=== PATIENT | female | born 1965 | race African-American/Black ===

== ENCOUNTER 2016-09-24 09:01 | Emergency (ER) | payer MEDICAID ==
[~2016-09-24] VITALS: Ht 167.6 cm; Wt 97.3 kg
[2016-09-24 09:03] VITALS: BP 136/86
[2016-09-24] MEDS ORDERED: DIPHENHYDRAMINE 50 MG/ML, 1ML IM ONE (09:30)
[2016-09-24] MEDS ORDERED: DIPHENHYDRAMINE 50 MG/ML, 1ML ONE (09:40)
== END 2016-09-24 09:50 | disposition home or self-care (01) ==
LOC: ED 09:40
DX: R21 Rash and other nonspecific skin eruption (principal); K59.00 Constipation, unspecified
CPT/HCPCS: 96372; 99283; J1200; J7512

== ENCOUNTER 2017-02-12 08:46 | Emergency (ER) | payer MEDICAID ==
[~2017-02-12] VITALS: Ht 167.6 cm; Wt 100.0 kg
[2017-02-12] MEDS ORDERED: METOPROLOL SUCCINATE 50 MG TAB.ER.24H PO ONE (09:57)
[2017-02-12] MEDS ORDERED: ASPIRIN 81 MG TABLET CHEW PO ONE (10:00)
[2017-02-12] MEDS ORDERED: ASPIRIN 81 MG TABLET CHEW ONE (10:29)
[2017-02-12 11:18] LABS: HEMATOCRIT 41.4 % (34.6-47.8); HEMOGLOBIN 13.7 g/dL (11.7-16.4); WHITE BLOOD COUNT 5.1 x10^3/uL (3.4-10)
[2017-02-12 12:25] LABS: ASPARTATE AMINO TRANSFERASE 46 U/L (15-37); BLOOD UREA NITROGEN 16 mg/dL (7-18)
[2017-02-12 12:32] LABS: IS PT STATUS REG ER OR PRE ER? YES
[2017-02-12 13:05] VITALS: BP 172/88
== END 2017-02-12 13:59 | disposition home or self-care (01) ==
LOC: ED 10:20
DX: M79.622 Pain in left upper arm (principal); I10 Essential (primary) hypertension
CPT/HCPCS: 36415; 80053; 84484; 85025; 93005; 99285

== ENCOUNTER 2020-12-31 08:04 | Inpatient (IN) | payer MEDICAID ==
[~2020-12-31] VITALS: Ht 167.6 cm; Wt 96.4 kg
--- NOTE | 2020-12-31 08:32 | NUR ---
FIRST CONTACT: NO TASTE, BACK PAIN, SOB NOT VACCINATED FOR COVID-19 PT TO ROOM WITH STEADY GAIT. POSTIONED TO COMFORT IN BED. ATTACHED TO MONITORS. VSS. AT BEDSIDE. CALL LIGHT IN REACH. DUYEN.
--- NOTE | 2020-12-31 09:18 | NUR ---
PT RESTING IN BED. VSDexter. DUYEN.
[2020-12-31] MEDS ORDERED: ONDANSETRON 2MG/ML, 2ML ONE (09:29)
[2020-12-31] MEDS ORDERED: ONDANSETRON 2MG/ML, 2ML IVPush ONE (09:30)
[2020-12-31] MEDS ORDERED: SODIUM CHLORIDE FLUSH 10ML SYR IVF ONE (09:30)
[2020-12-31] MEDS ORDERED: SODIUM CHLORIDE 0.9% 1,000ML IVBOLUS ONE (09:30)
[2020-12-31 10:05] LABS: BASOPHILS % (AUTO) 1 % (0-1); EOSINOPHILS % (AUTO) 1 % (1-7); LYMPHOCYTES % (AUTO) 62 % (22-44); MEAN CORPUSCULAR HEMOGLOBIN 26.8 pg (27.0-34.8); MEAN CORPUSCULAR HGB CONC 32.1 g/dL (32.4-35.8); MEAN PLATELET VOLUME 10.4 fL (7.4-10.4); MONOCYTES % (AUTO) 9 % (2-9); NEUTROPHILS % (AUTO) 28 % (42-75); PLATELET COUNT 119 x10^3/uL (130-400); RED BLOOD COUNT 4.38 x10^6/uL (3.82-5.3); RED CELL DISTRIBUTION WIDTH 14.2 % (9.6-15.2)
[2020-12-31 10:19] LABS: ALANINE AMINOTRANSFERASE 84 U/L (12-78); ANION GAP 10 mmol/L (5-15); CHLORIDE 112 mmol/L (98-107); CREATININE 3.92 mg/dL (0.55-1.02)
[2020-12-31 10:24] LABS: ALKALINE PHOSPHATASE 54 U/L (45-117); BILIRUBIN,TOTAL 0.3 mg/dL (0.2-1.0); TOTAL PROTEIN 7.8 g/dL (6.4-8.2); TROPONIN I < 0.015 ng/mL (0.000-0.045)
[2020-12-31] MEDS ORDERED: SODIUM CHLORIDE 0.9% 1,000 ML IV ONE (11:00)
[2020-12-31] MEDS ORDERED: DEXTROSE 50%, 50ML SYRINGE IVPush ONE (12:00)
[2020-12-31] MEDS ORDERED: SODIUM BICARB 8.4%, 50ML SYRINGE IVPush ONE (12:00)
[2020-12-31] MEDS ORDERED: INSULIN REGULAR 100 UNITS/ML, 3ML VIAL IVPush ONE (12:00)
[2020-12-31] MEDS ORDERED: INSULIN LISPRO SINGLE DOSE, ER SQ-INSULIN ONE ×2 (12:18→12:19)
[2020-12-31] MEDS ORDERED: DEXTROSE 50%, 50ML SYRINGE ONE (12:18)
[2020-12-31] MEDS ORDERED: SODIUM BICARB 8.4%, 50ML SYRINGE ONE (12:18)
[2020-12-31] MEDS ORDERED: SODIUM CHLORIDE FLUSH 10ML SYR IVF PRN (12:30)
--- NOTE | 2020-12-31 12:49 | NUR ---
PT MEDICATED PER EMAR. VSS. EDWIGEN.
--- NOTE | 2020-12-31 12:56 | NUR ---
PT RESTING IN BED. TO BE ADMITTED. VSS. GELLER.
--- NOTE | 2020-12-31 13:09 | NUR ---
smh at bedside.
[2020-12-31] MEDS ORDERED: DIPHENOXYLATE/ATROPINE TABLET PO PRN (13:30)
[2020-12-31] MEDS ORDERED: ONDANSETRON 2MG/ML, 2ML IVPush PRN (13:30)
[2020-12-31] MEDS ORDERED: ACETAMINOPHEN 325 MG TABLET PO PRN (13:30)
[2020-12-31] MEDS ORDERED: TRAZODONE 50MG TABLET PO PRN (13:30)
[2020-12-31] MEDS ORDERED: MELATONIN 5 MG TABLET PO PRN (13:30)
[2020-12-31] MEDS ORDERED: HEPARIN 5,000 UNITS/ML, 1ML ONE ×2 (13:42→22:59)
[2020-12-31] MEDS: SODIUM CHLORIDE 0.9% 1,000 ML IV SCH ×2 (13:45→20:10)
[2020-12-31] MEDS: HEPARIN 5,000 UNITS/ML, 1ML SQ SCH ×2 (13:45→23:01)
--- NOTE | 2020-12-31 13:52 | NUR ---
task rn note: IV in rt hand not functioning. Pt sitting up in bed watching television. Pt states "I'm done being stuck, I don't feel like I'm going to have a heart attack, you can just send me home." Pt educated on risks regarding potassium lab levels. Pt agrees to ultrasound IV placement.
--- NOTE | 2020-12-31 14:31 | NUR ---
PT SITTING UP EATING. VSS. GELLER.
--- NOTE | 2020-12-31 18:52 | NUR ---
REPORT RECEIVED FROM MARVIN MARTIN
--- NOTE | 2020-12-31 21:00 | NUR ---
PT AMBULATORY WITH THIS RN TO BATHROOM. STEADY GAIT AND NO ASSISTANCE NEEDED. PT RETURNED TO ROOM. NO ADDITIONAL NEEDS AT THIS TIME. CALL LIGHT AND PERSONAL BELONGINGS WITHIN REACH.
--- NOTE | 2020-12-31 23:55 | NUR ---
Pt to be admitted to [facility], room 486-1. Report called to [facility]U MARTIN.
[2021-01-01 01:01] VITALS: BP 159/82
[2021-01-01] MEDS: HEPARIN 5,000 UNITS/ML, 1ML SQ SCH ×3 (05:37→20:55)
[2021-01-01 06:23] LABS: ANION GAP 5 mmol/L (5-15); CALCIUM 7.3 mg/dL (8.5-10.1); CHLORIDE 118 mmol/L (98-107)
[2021-01-01 08:42] VITALS: BP 143/77
[2021-01-01] MEDS: ZINC SULFATE 220 MG CAPSULE PO SCH (08:45)
[2021-01-01] MEDS: ASCORBIC ACID 250 MG TAB PO SCH ×2 (08:45→19:26)
[2021-01-01] MEDS: AMLODIPINE 10 MG TAB PO SCH (08:46)
[2021-01-01] MEDS: CHOLECALCIFEROL 5,000u TAB PO SCH (08:46)
[2021-01-01] MEDS ORDERED: AMLO-211 PO (08:49)
[2021-01-01] MEDS: SODIUM CHLORIDE 0.9% 1,000 ML IV SCH ×3 (10:58→19:25)
[2021-01-01 13:30] VITALS: BP 111/63
[2021-01-01 19:30] VITALS: BP 123/76
[2021-01-02 00:53] VITALS: BP 107/65
[2021-01-02] MEDS: SODIUM CHLORIDE 0.9% 1,000 ML IV SCH ×2 (01:44→08:30)
[2021-01-02] MEDS: HEPARIN 5,000 UNITS/ML, 1ML SQ SCH (04:53)
[2021-01-02 05:54] LABS: BASOPHILS % (AUTO) 1 % (0-1); EOSINOPHILS % (AUTO) 0 % (1-7); LYMPHOCYTES % (AUTO) 42 % (22-44); MEAN CORPUSCULAR HEMOGLOBIN 27.8 pg (27.0-34.8); MEAN CORPUSCULAR HGB CONC 32.9 g/dL (32.4-35.8); MEAN PLATELET VOLUME 10.3 fL (7.4-10.4); MONOCYTES % (AUTO) 8 % (2-9); NEUTROPHILS % (AUTO) 50 % (42-75); PLATELET COUNT 95 x10^3/uL (130-400); RED BLOOD COUNT 3.58 x10^6/uL (3.82-5.3); RED CELL DISTRIBUTION WIDTH 14.2 % (9.6-15.2)
[2021-01-02 06:07] LABS: ALBUMIN 2.2 g/dL (3.4-5.0); ANION GAP 8 mmol/L (5-15); CALCIUM 7.4 mg/dL (8.5-10.1); CHLORIDE 120 mmol/L (98-107)
[2021-01-02 06:10] LABS: ALANINE AMINOTRANSFERASE 65 U/L (12-78); ALKALINE PHOSPHATASE 39 U/L (45-117); BILIRUBIN,TOTAL 0.3 mg/dL (0.2-1.0); CREATININE 2.16 mg/dL (0.55-1.02); TOTAL PROTEIN 6.2 g/dL (6.4-8.2)
[2021-01-02] MEDS: ASCORBIC ACID 250 MG TAB PO SCH (07:51)
[2021-01-02] MEDS: AMLODIPINE 10 MG TAB PO SCH (07:51)
[2021-01-02] MEDS: ZINC SULFATE 220 MG CAPSULE PO SCH (07:51)
[2021-01-02] MEDS: CHOLECALCIFEROL 5,000u TAB PO SCH (07:51)
[2021-01-02 07:54] VITALS: BP 126/74
[2021-01-02 10:06] LABS: ANION GAP 8 mmol/L (5-15); CALCIUM 7.5 mg/dL (8.5-10.1); CHLORIDE 118 mmol/L (98-107)
[2021-01-02 10:07] LABS: CREATININE 2.12 mg/dL (0.55-1.02)
== END 2021-01-02 12:45 | disposition home or self-care (01) | DRG 469 ==
LOC: ED 09:34 → EDIP 12:26 → 4EST 01-01 00:56 → 3N 01-01 11:42
PROVIDERS: ADMIT Internal Medicine; ATTEND Family Medicine
DX: N17.0 Acute kidney failure with tubular necrosis (principal); U07.1 COVID-19; E86.0 Dehydration; E87.5 Hyperkalemia; F17.200 Nicotine dependence, unspecified, uncomplicated; I10 Essential (primary) hypertension; M54.2 Cervicalgia; Z88.0 Allergy status to penicillin
CPT/HCPCS: 36415; 71045; 76770; 80048; 80053; 82962; 83880; 84100; 84484; 85025; 93005; 99285; G0378; J1644; J2405; U0005; J7030; U0003